=== PATIENT | male | born 1965 | race Caucasian/White ===

== ENCOUNTER → 2024-04-06 06:19 | Outpatient (REF) | payer OTHER, SELFPAY | LOC: RAD 06:19 | PROVIDERS: ATTENDING PHYSICIAN Family Medicine | DX: I65.23 Occlusion and stenosis of bilateral carotid arteries (principal) | CPT/HCPCS: 93880 ==

== ENCOUNTER 2025-01-19 06:27 | Day surgery (SDC) | payer OTHER, SELFPAY | END 2025-01-19 09:40 | disposition home or self-care (01) | LOC: GI 06:27 | PROVIDERS: ATTENDING PHYSICIAN Internal Medicine Gastroenterology | DX: Z12.11 Encounter for screening for malignant neoplasm of colon (principal); Q43.8 Other specified congenital malformations of intestine; K64.8 Other hemorrhoids | CPT/HCPCS: G0105 ==